=== PATIENT | male | born 2000 | race Caucasian/White ===

== ENCOUNTER 2024-08-22 12:55 | Emergency (ER) | payer OTHER ==
[2024-08-22 13:04] VITALS: BP 122/77; PULSE 80; RESP 18; TEMP 98.4; BMI 25.0
== END 2024-08-22 14:24 | disposition home or self-care (01) ==
LOC: JERFT 12:55 → JER 12:55 → JERFT 14:24
DX: S43.401A Unspecified sprain of right shoulder joint, initial encounter (principal); W20.8XXA Other cause of strike by thrown, projected or falling object, initial encounter
CPT/HCPCS: 73030-TC-RT-FY; 99283-25